=== PATIENT | female | born 1970 | race Caucasian/White ===

== ENCOUNTER → 2016-10-09 | Outpatient (REF) | payer BC ==
[2016-10-09 11:49] LABS: BASO # 0.1 K/mm3 (0.0-0.2); EOS # 0.4 K/mm3 (0.0-0.50); EOS % 4.1 % (0.0-3.0); LARGE UNSTAINED CELL # 0.2 K/mm3 (0.0-0.4); LARGE UNSTAINED CELL % 2.2 % (0.0-4.0); LYMPH # 2.2 K/mm3 (1.5-4.5); LYMPH % 23.3 % (24.0-44.0); MEAN CORPUSCULAR HEMOGLOBIN 30.8 pg (27.0-33.0); MEAN CORPUSCULAR HGB CONC 32.9 g/dl (32.0-36.5); MEAN CORPUSCULAR VOLUME 93.5 fl (80.0-96.0); MONO # 0.4 K/mm3 (0.0-0.8); MONO % 4.4 % (0.0-5.0); NEUTROPHILS # 5.5 K/mm3 (1.8-7.7); NEUTROPHILS % 64.9 % (36.0-66.0); PLATELET COUNT, AUTOMATED 271 k/mm3 (150-450); RED CELL DISTRIBUTION WIDTH 13.1 % (11.5-14.5); WHITE BLOOD COUNT 8.5 K/mm3 (4.0-10.0)
[2016-10-09 12:00] LABS: INR 1.8
[2016-10-09 12:23] LABS: ALBUMIN 3.6 GM/DL (3.2-5.2); ALBUMIN/GLOBULIN RATIO 1.03 (1.00-1.93); ALKALINE PHOSPHATASE 53 U/L (45-117); ALT/SGPT 30 U/L (12-78); ANION GAP 9 MEQ/L (8-16); AST/SGOT 16 U/L (15-37); BILIRUBIN,TOTAL 0.4 MG/DL (0.2-1.0); BLOOD UREA NITROGEN 13 MG/DL (7-18); CALCIUM LEVEL 8.7 MG/DL (8.5-10.1); CARBON DIOXIDE LEVEL 25 MEQ/L (21-32); CHLORIDE LEVEL 104 MEQ/L (98-107); CHOLESTEROL LEVEL 227 MG/DL (<200); CREATININE FOR GFR 0.76 MG/DL (0.55-1.02); FERRITIN 15 NG/ML (8-252); FREE T4 1.07 NG/DL (0.76-1.46); GLOMERULAR FILTRATION RATE > 60.0 (>58); GLUCOSE, FASTING 81 MG/DL (70-105); POTASSIUM SERUM 4.4 MEQ/L (3.5-5.1); SODIUM LEVEL 138 MEQ/L (136-145); TOTAL PROTEIN 7.1 GM/DL (6.4-8.2); TRIGLYCERIDES LEVEL 116 MG/DL (<150)
== END ==
LOC: M SFHCPLAZ 08:07
PROVIDERS: ATTEND Family Medicine
DX: Z86.711 Personal history of pulmonary embolism (principal); E78.5 Hyperlipidemia, unspecified; R73.01 Impaired fasting glucose; E55.9 Vitamin D deficiency, unspecified

== ENCOUNTER → 2016-12-07 | Outpatient (CLI) | payer BC ==
--- NOTE | 2016-12-07 09:37 | REPMRS ---
Patient History The patient states she had a clinical breast exam in 12/2016. Family history of breast cancer in paternal aunt under age 50. Digital Woman Screen Mammo: December 07, 2016 - Exam #: [id number] Bilateral CC and MLO view(s) were taken. Technologist: Marti Perez Technologist Prior study comparison: October 24, 2015, digital woman screen mammo performed at [facility]. May 14, 2014, digital woman screen mammo performed at [facility]. FINDINGS: There are scattered fibroglandular densities. There has been no change in the appearance of the mammogram from the prior studies. There is a mild amount of residual fibroglandular tissue which is fairly symmetric. There is no interval development of dominant mass, architectural distortion, or clustered microcalcification suggestive of malignancy. Scattered lymph nodes are seen in the axillae. No significant changes when compared with prior studies. ASSESSMENT: BI-RADS/ACR category 2 mammogram. Benign finding(s). Recommendation Routine screening mammogram in 1 year (for women over age 40). This mammogram was interpreted with the aid of an FDA-approved computer-aided dectection system. A. Negative x-ray reports should not delay biopsy if a dominant or clinically suspicious mass is present. B. Four to eight percent of cancers are not identified by mammography. C. Adenosis and dense breast may obscure an underlying neoplasm. Electronically Signed By: Patrick Bryan MD 12/07/16 0937
== END ==
LOC: M WHC 07:59
PROVIDERS: ATTEND Family Medicine
DX: Z12.31 Encounter for screening mammogram for malignant neoplasm of breast (principal)

== ENCOUNTER → 2017-07-23 | Outpatient (REF) | payer BC ==
[2017-07-23 12:05] LABS: HEMATOCRIT 46.8 % (36.0-47.0)
[2017-07-23 12:15] LABS: INR 2.69; PROTHROMBIN TIME 29.7 SECONDS (12.4-14.5)
[2017-07-23 12:16] LABS: PARTIAL THROMBOPLASTIN TIME 51.2 SECONDS (26.8-37.9)
[2017-07-23 12:17] LABS: APPEARANCE, URINE CLEAR (CLEAR); BACTERIA, URINE AUTO NEGATIVE (NEGATIVE); BILIRUBIN, URINE AUTO NEGATIVE (NEGATIVE); BLOOD, URINE BLOOD 1+ (NEGATIVE); COLOR, URINE YELLOW (YELLOW); GLUCOSE, URINE (UA) AUTO NEGATIVE (NEGATIVE); KETONE, URINE AUTO NEGATIVE (NEGATIVE); LEUKOCYTE ESTERASE, URINE AUTO NEGATIVE (NEGATIVE); MUCUS, URINE SMALL (NEGATIVE); NITRITE, URINE AUTO NEGATIVE (NEGATIVE); PROTEIN, URINE AUTO NEGATIVE (NEGATIVE); RBC, URINE AUTO 0 /HPF (0-3); SPECIFIC GRAVITY URINE AUTO 1.011 (1.002-1.035); SQUAMOUS EPITHELIAL CELL UR AU 2 /HPF (0-6); UROBILINOGEN, URINE AUTO 0.2 mg/dL (0.0-2.0); WBC, URINE AUTO 0 /HPF (0-3)
[2017-07-23 12:21] LABS: C REACTIVE PROTEIN QUANTITATIV < 0.30 MG/DL (0.00-0.30); CHOLESTEROL LEVEL 219 MG/DL (<200); CHOLESTEROL RISK RATIO 6.441 (<5); HDL CHOLESTEROL 34 MG/DL (>40); LDL CHOLESTEROL 147.8 MG/DL (<100); NON-HDL-C 185 MG/DL; TOTAL PROTEIN 7.4 GM/DL (6.4-8.2); TRIGLYCERIDES LEVEL 186 MG/DL (<150)
[2017-07-23 12:38] LABS: VITAMIN B12 LEVEL 326 PG/ML (247-911)
[2017-07-23 12:49] LABS: CREATININE, URINE 70.1 MG/DL; MALB URINE SIEMENS < 5.0 MG/L; MAU/CREAT RATIO 7.1 MCG/MG (0.0-30.0)
[2017-07-23 13:09] LABS: ESTIMATED AVERAGE GLUCOSE 111 MG/DL (60-110); HEMOGLOBIN A1c 5.5 %
[2017-07-23 14:21] LABS: PRETREATED FOLATE FOR RBCFOL 12.2 NG/ML; RBC FOLATE 547.4 NG/ML (280-791)
[2017-07-25 11:19] LABS: ALBUMIN 4.14 GM/DL (3.29-5.55); ALPHA-1-GLOBULIN % 3.8 % (2.9-4.9); ALPHA-1-GLOBULINS 0.28 GM/DL (0.17-0.41); ALPHA-2-GLOBULINS 0.83 GM/DL (0.42-0.99); ALPHA-2-GLOBULINS % 11.2 % (7.1-11.8); BETA-1-GLOBULINS % 6.8 % (4.7-7.2); BETA-2-GLOBULINS % 6.7 % (3.2-6.5); GAMMA GLOBULIN % 15.5 % (11.1-18.8); GAMMA GLOBULINS 1.15 GM/DL (0.65-1.58)
== END ==
LOC: M SFHCPLAZ 08:07
DX: E78.5 Hyperlipidemia, unspecified (principal); R73.01 Impaired fasting glucose; D68.51 Activated protein C resistance; D75.89 Other specified diseases of blood and blood-forming organs
CPT/HCPCS: 84165

== ENCOUNTER → 2017-11-20 | Outpatient (REF) | payer BC ==
[2017-11-20 11:44] LABS: BASO # 0.1 10^3/uL (0.0-0.2); BASO % 1.2 % (0.0-1.0); EOS # 0.2 10^3/uL (0.0-0.50); EOS % 2.8 % (0.0-3.0); HEMATOCRIT 43.9 % (36.0-47.0); HEMOGLOBIN 14.3 g/dl (12.0-15.5); IMMATURE GRANULOCYTE % 0.5 % (0-3.0); LYMPH # 2.1 10^3/uL (1.5-4.5); LYMPH % 24.9 % (24.0-44.0); MEAN CORPUSCULAR HEMOGLOBIN 30.4 pg (27.0-33.0); MEAN CORPUSCULAR HGB CONC 32.6 g/dl (32.0-36.5); MEAN CORPUSCULAR VOLUME 93.2 fl (80.0-96.0); MONO # 0.6 10^3/uL (0.0-0.8); MONO % 6.8 % (0.0-5.0); NEUTROPHILS # 5.3 10^3/uL (1.8-7.7); NEUTROPHILS % 63.8 % (36.0-66.0); PLATELET COUNT, AUTOMATED 301 10^3/uL (150-450); RED BLOOD COUNT 4.71 10^6/uL (4.00-5.40); RED CELL DISTRIBUTION WIDTH 13.3 % (11.5-14.5); WHITE BLOOD COUNT 8.3 10^3/uL (4.0-10.0)
[2017-11-20 11:55] LABS: INR 2.09; PROTHROMBIN TIME 23.9 SECONDS (12.1-14.4)
[2017-11-20 11:56] LABS: PARTIAL THROMBOPLASTIN TIME 42.3 SECONDS (25.4-37.6)
[2017-11-20 12:00] LABS: ESTIMATED AVERAGE GLUCOSE 114 MG/DL (60-110); HEMOGLOBIN A1c 5.6 %
[2017-11-20 12:07] LABS: VITAMIN B12 LEVEL 449 PG/ML (247-911)
[2017-11-20 12:29] LABS: ALBUMIN 3.5 GM/DL (3.2-5.2); ALKALINE PHOSPHATASE 50 U/L (45-117); ALT/SGPT 32 U/L (12-78); ANION GAP 10 MEQ/L (8-16); AST/SGOT 15 U/L (7-37); BILIRUBIN,TOTAL 0.4 MG/DL (0.2-1.0); BLOOD UREA NITROGEN 17 MG/DL (7-18); CALCIUM LEVEL 8.5 MG/DL (8.5-10.1); CARBON DIOXIDE LEVEL 26 MEQ/L (21-32); CHLORIDE LEVEL 105 MEQ/L (98-107); CREATININE FOR GFR 0.79 MG/DL (0.55-1.30); GLOMERULAR FILTRATION RATE > 60.0 (>58); GLUCOSE, FASTING 91 MG/DL (70-100); POTASSIUM SERUM 4.6 MEQ/L (3.5-5.1); SODIUM LEVEL 141 MEQ/L (136-145)
[2017-11-22 00:37] LABS: INSULIN LEVEL 21.9 uIU/mL (2.6-24.9)
== END ==
LOC: M SFHCPLAZ 08:44
DX: E53.8 Deficiency of other specified B group vitamins (principal); R73.01 Impaired fasting glucose; E78.5 Hyperlipidemia, unspecified; Z79.01 Long term (current) use of anticoagulants
CPT/HCPCS: 83525

== ENCOUNTER → 2017-12-09 | Outpatient (CLI) | payer BC | LOC: M WHC 09:52 | DX: Z12.31 Encounter for screening mammogram for malignant neoplasm of breast (principal); Z80.3 Family history of malignant neoplasm of breast | CPT/HCPCS: 77067 ==

== ENCOUNTER → 2018-02-17 | Outpatient (REF) | payer BC ==
[2018-02-17 13:18] LABS: BASO # 0.1 10^3/uL (0.0-0.2); EOS # 0.2 10^3/uL (0.0-0.50); EOS % 2.6 % (0.0-3.0); HEMOGLOBIN 14.7 g/dl (12.0-15.5); IMMATURE GRANULOCYTE % 0.4 % (0-3.0); LYMPH # 2.2 10^3/uL (1.5-4.5); LYMPH % 26.5 % (24.0-44.0); MEAN CORPUSCULAR HEMOGLOBIN 30.5 pg (27.0-33.0); MEAN CORPUSCULAR VOLUME 95.4 fl (80.0-96.0); MONO # 0.5 10^3/uL (0.0-0.8); MONO % 6.3 % (0.0-5.0); NEUTROPHILS # 5.1 10^3/uL (1.8-7.7); NEUTROPHILS % 63.2 % (36.0-66.0); PLATELET COUNT, AUTOMATED 292 10^3/uL (150-450); RED BLOOD COUNT 4.82 10^6/uL (4.00-5.40); RED CELL DISTRIBUTION WIDTH 13.3 % (11.5-14.5); WHITE BLOOD COUNT 8.1 10^3/uL (4.0-10.0)
[2018-02-17 13:29] LABS: INR 1.94; PROTHROMBIN TIME 22.5 SECONDS (12.1-14.4)
[2018-02-17 13:30] LABS: PARTIAL THROMBOPLASTIN TIME 41.2 SECONDS (25.4-37.6)
[2018-02-17 13:47] LABS: ESTIMATED AVERAGE GLUCOSE 111 MG/DL (60-110); HEMOGLOBIN A1c 5.5 %
[2018-02-17 13:49] LABS: ALBUMIN 3.5 GM/DL (3.2-5.2); ALBUMIN/GLOBULIN RATIO 0.97 (1.00-1.93); ALKALINE PHOSPHATASE 50 U/L (45-117); ALT/SGPT 33 U/L (12-78); ANION GAP 11 MEQ/L (8-16); AST/SGOT 18 U/L (7-37); BILIRUBIN,TOTAL 0.4 MG/DL (0.2-1.0); BLOOD UREA NITROGEN 14 MG/DL (7-18); C REACTIVE PROTEIN QUANTITATIV 0.65 MG/DL (0.00-0.30); CALCIUM LEVEL 8.2 MG/DL (8.5-10.1); CARBON DIOXIDE LEVEL 23 MEQ/L (21-32); CHLORIDE LEVEL 105 MEQ/L (98-107); CHOLESTEROL LEVEL 230 MG/DL (<200); CHOLESTEROL RISK RATIO 6.052 (<5); CREATININE FOR GFR 0.81 MG/DL (0.55-1.30); GLOMERULAR FILTRATION RATE > 60.0 (>58); GLUCOSE, FASTING 84 MG/DL (70-100); HDL CHOLESTEROL 38 MG/DL (>40); LDL CHOLESTEROL 159 MG/DL (<100); NON-HDL-C 192 MG/DL; POTASSIUM SERUM 4.7 MEQ/L (3.5-5.1); PTH INTACT 68.8 PG/ML (18.5-88.0); SODIUM LEVEL 139 MEQ/L (136-145); TOTAL 25(OH) VITAMIN D 62.7 NG/ML (30.0-100.0); TOTAL PROTEIN 7.1 GM/DL (6.4-8.2); TRIGLYCERIDES LEVEL 163 MG/DL (<150)
[2018-02-18 12:47] LABS: ALBUMIN % 55.4 % (55.8-66.1); ALPHA-1-GLOBULIN % 4.2 % (2.9-4.9); ALPHA-2-GLOBULINS % 11.8 % (7.1-11.8)
[2018-02-18 12:48] LABS: ALBUMIN 3.93 GM/DL (3.29-5.55); ALPHA-2-GLOBULINS 0.84 GM/DL (0.42-0.99); BETA-2-GLOBULINS 0.47 GM/DL (0.19-0.55); BETA-2-GLOBULINS % 6.6 % (3.2-6.5); GAMMA GLOBULINS 1.07 GM/DL (0.65-1.58)
[2018-02-19 15:03] LABS: INSULIN LEVEL 28.9 uIU/mL (2.6-24.9)
== END ==
LOC: M SFHCPLAZ 09:24
DX: D75.89 Other specified diseases of blood and blood-forming organs (principal); E55.9 Vitamin D deficiency, unspecified; E78.5 Hyperlipidemia, unspecified; R73.01 Impaired fasting glucose; Z86.718 Personal history of other venous thrombosis and embolism
CPT/HCPCS: 83525

== ENCOUNTER → 2018-06-21 | Outpatient (CLI) | payer BC ==
--- NOTE | 2018-06-22 09:35 | REP ---
MRI LEFT ANKLE WITHOUT CONTRAST: 06/21/2018. COMPARISON: X-ray, 10/21/2017. CLINICAL HISTORY: Sprain anterior talofibular ligament suspected, followup. TECHNIQUE: Axial T1 and T2 fat suppressed, coronal T2 fat suppressed with sagittal T1 and T2 STIR sequences. FINDINGS: Prominent joint effusion anterior to the ankle, smaller amount posterior. There is trace amount on the posterior subtalar joint. The anterior tibiofibular ligament is grossly intact anterior talofibular ligament shows tear. Posterior talofibular ligament is intact. The calcaneofibular ligament shows strain. Deltoid ligament is intact. Subchondral edema, the medial aspect of the posterior subtalar joint. That joint is otherwise unremarkable. Distal tibia and fibula are without discrete bone bruise or fracture. There is no avulsion or abnormality suggested about the medial or lateral malleolus. Some degenerative changes are seen in the subtalar joint. I do not see a talar dome osteochondral defect or disruption of the mortise joint with asymmetry. No Achilles insertional spur, but there is evidence for chronic Achilles tendinopathy with abnormal thickening of the tendon up to almost 9 mm at a point 4.3 cm above its insertion. There is some subcutaneous edema about the ankle laterally. The PT, FDL, and FHL tendons are grossly intact. PD/PL tendons are also intact. AT, EDL, and DHL tendons are also intact. Tarsal bones and their articulations are unremarkable. Talonavicular and calcaneocuboid joints are intact. IMPRESSION: 1. Torn anterior talofibular ligament with strain of the posterior talofibular and calcaneofibular ligaments but no tear. The anterior tibiofibular ligament intact. 2. Deltoid ligament unremarkable, and the tendons about the ankle are unremarkable, except for the Achilles which shows some chronic tendinopathy, tendonitis with abnormal thickening up to 9 mm in its position about 4-5 cm above its insertion. No acute Achilles injury or tear. 3. Subtalar joint degenerative changes with subchondral edema along the medial aspect of the posterior subtalar joint and also the marrow signal throughout the ankle was otherwise intact. Electronically Signed by Patrick Bryan MD 06/22/2018 11:29 A
== END ==
LOC: M RAD 09:11
PROVIDERS: ATTEND Family Medicine
DX: S93.492D Sprain of other ligament of left ankle, subsequent encounter (principal)

== ENCOUNTER → 2018-07-14 | Outpatient (REF) | payer BC ==
[2018-07-14 12:12] LABS: BASO % 0.4 % (0.0-1.0); EOS # 0.2 10^3/uL (0.0-0.50); EOS % 3.3 % (0.0-3.0); HEMATOCRIT 47.5 % (36.0-47.0); HEMOGLOBIN 15.3 g/dl (12.0-15.5); LYMPH # 1.9 10^3/uL (1.5-4.5); MEAN CORPUSCULAR HEMOGLOBIN 29.7 pg (27.0-33.0); MEAN CORPUSCULAR HGB CONC 32.2 g/dl (32.0-36.5); MEAN CORPUSCULAR VOLUME 92.2 fl (80.0-96.0); MONO # 0.4 10^3/uL (0.0-0.8); MONO % 5.8 % (0.0-5.0); NEUTROPHILS # 4.1 10^3/uL (1.8-7.7); NEUTROPHILS % 62.1 % (36.0-66.0); PLATELET COUNT, AUTOMATED 235 10^3/uL (150-450); RED BLOOD COUNT 5.15 10^6/uL (4.00-5.40); WHITE BLOOD COUNT 6.7 10^3/uL (4.0-10.0)
[2018-07-14 12:29] LABS: INR 2.15; PROTHROMBIN TIME 24.4 SECONDS (12.1-14.4)
[2018-07-14 12:30] LABS: PARTIAL THROMBOPLASTIN TIME 43.8 SECONDS (25.4-37.6)
[2018-07-14 12:49] LABS: C REACTIVE PROTEIN QUANTITATIV 0.87 MG/DL (0.00-0.30); CHOLESTEROL LEVEL 165 MG/DL (<200); CPK CREATINE PHOSPHOKINASE 55 U/L (26-192); FREE T4 1.08 NG/DL (0.76-1.46); HDL CHOLESTEROL 33 MG/DL (>40); LDL CHOLESTEROL 105 MG/DL (<100); NON-HDL-C 132 MG/DL; TRIGLYCERIDES LEVEL 134 MG/DL (<150)
[2018-07-14 15:28] LABS: HEMOGLOBIN A1c 5.9 %
[2018-07-16 00:07] LABS: FREE KAPPA LIGHT CHAINS SERUM 26.8 mg/L (3.3-19.4); FREE LAMBDA LIGHT CHAINS SERUM 21.8 mg/L (5.7-26.3); KAPPA/LAMBDA RATIO SERUM 1.23 (0.26-1.65)
== END ==
LOC: M SFHCPLAZ 08:43
PROVIDERS: ATTEND Family Medicine
DX: E53.8 Deficiency of other specified B group vitamins (principal); E78.5 Hyperlipidemia, unspecified; R73.01 Impaired fasting glucose; Z86.718 Personal history of other venous thrombosis and embolism

== ENCOUNTER → 2018-12-15 | Outpatient (REF) | payer BC ==
[2018-12-15 10:00] LABS: BASO # 0.1 10^3/uL (0.0-0.2); BASO % 1.2 % (0.0-1.0); EOS # 0.2 10^3/uL (0.0-0.50); HEMATOCRIT 46.8 % (36.0-47.0); LYMPH # 1.8 10^3/uL (1.5-4.5); LYMPH % 21.8 % (24.0-44.0); MEAN CORPUSCULAR HEMOGLOBIN 30.7 pg (27.0-33.0); MEAN CORPUSCULAR HGB CONC 32.1 g/dl (32.0-36.5); MEAN CORPUSCULAR VOLUME 95.7 fl (80.0-96.0); MONO # 0.6 10^3/uL (0.0-0.8); MONO % 6.5 % (0.0-5.0); NEUTROPHILS # 5.8 10^3/uL (1.8-7.7); NEUTROPHILS % 68.3 % (36.0-66.0); PLATELET COUNT, AUTOMATED 256 10^3/uL (150-450); RED BLOOD COUNT 4.89 10^6/uL (4.00-5.40); WHITE BLOOD COUNT 8.4 10^3/uL (4.0-10.0)
[2018-12-15 10:08] LABS: INR 1.89; PROTHROMBIN TIME 21.5 SECONDS (11.8-14.0)
[2018-12-15 10:09] LABS: PARTIAL THROMBOPLASTIN TIME 38.5 SECONDS (25.0-38.4)
[2018-12-15 10:34] LABS: ALBUMIN 3.7 GM/DL (3.2-5.2); ALT/SGPT 25 U/L (12-78); BILIRUBIN,TOTAL 0.6 MG/DL (0.2-1.0); BLOOD UREA NITROGEN 13 MG/DL (7-18); CALCIUM LEVEL 8.6 MG/DL (8.5-10.1); CARBON DIOXIDE LEVEL 26 MEQ/L (21-32); CHLORIDE LEVEL 108 MEQ/L (98-107); GLOMERULAR FILTRATION RATE > 60.0 (>58); GLUCOSE, FASTING 78 MG/DL (70-100); MAGNESIUM LEVEL 2.5 MG/DL (1.8-2.4); POTASSIUM SERUM 4.5 MEQ/L (3.5-5.1); SODIUM LEVEL 141 MEQ/L (136-145)
[2018-12-15 11:53] LABS: HEMOGLOBIN A1c 5.6 %
== END ==
LOC: M SFHCPLAZ 08:14
PROVIDERS: ATTEND Family Medicine
DX: R73.01 Impaired fasting glucose (principal); Z79.01 Long term (current) use of anticoagulants

== ENCOUNTER → 2019-06-18 | Outpatient (CLI) | payer BC ==
--- NOTE | 2019-06-18 12:20 | REPMRS ---
Patient History The patient states she had a clinical breast exam in 2019. Family history of breast cancer under age 50 in paternal aunt. Digital Woman Screen Mammo: June 18, 2019 - Exam #: [id number] Bilateral CC and MLO view(s) were taken. Technologist: Snehal Quiroz, Technologist Prior study comparison: December 09, 2017, bilateral digital woman screen mammo performed at [facility]. December 07, 2016, digital woman screen mammo performed at [facility]. October 24, 2015, digital woman screen mammo performed at [facility]. FINDINGS: The breast tissue is heterogeneously dense. This may lower the sensitivity of mammography. There is a moderate amount of heterogeneously dense fibroglandular tissue which is fairly symmetric. There is no interval development of dominant mass, architectural distortion, or grouped microcalcification typical of malignancy. There has been no change in the appearance of the mammogram from the prior studies. 3-D tomosynthesis shows no additional findings. Assessment: BI-RADS/ACR category 1 mammogram. Negative Mammogram. Recommendation Routine screening mammogram of both breasts in 1 year (for women over age 40). This patient's Lifetime Breast Cancer RIsk is estimated at 17.2 %. This mammogram was interpreted with the aid of an FDA-approved computer-aided dectection system. Electronically Signed By: Jared Peña MD 06/18/19 2644
== END ==
LOC: M WHC 10:49
PROVIDERS: ATTEND Family Medicine
DX: Z12.31 Encounter for screening mammogram for malignant neoplasm of breast (principal); Z80.3 Family history of malignant neoplasm of breast

== ENCOUNTER → 2019-06-18 | Outpatient (REF) | payer BC | LOC: M SFHCWAGY 12:45 | PROVIDERS: ATTEND Nurse Practitioner Women's Health | DX: Z12.4 Encounter for screening for malignant neoplasm of cervix (principal) | CPT/HCPCS: 87624; G0123 ==

== ENCOUNTER → 2019-07-15 | Outpatient (REF) | payer BC ==
[2019-07-15 18:05] LABS: INR 2.63; PROTHROMBIN TIME 27.9 SECONDS (11.8-14.0)
== END ==
LOC: M SFHCPLAZ 14:08
PROVIDERS: ATTEND Physician Assistant Medical
DX: Z51.81 Encounter for therapeutic drug level monitoring (principal); Z79.899 Other long term (current) drug therapy

== ENCOUNTER → 2019-07-30 | Outpatient (REF) | payer BC ==
[2019-07-30 17:34] LABS: HEMOGLOBIN A1c 5.8 %
[2019-07-30 17:38] LABS: INR 2.65; PARTIAL THROMBOPLASTIN TIME 45.9 SECONDS (25.0-38.4); PROTHROMBIN TIME 28.1 SECONDS (11.8-14.0)
[2019-07-30 17:39] LABS: ALBUMIN 3.8 GM/DL (3.2-5.2); ALT/SGPT 28 U/L (12-78); BILIRUBIN,TOTAL 0.3 MG/DL (0.2-1.0); BLOOD UREA NITROGEN 11 MG/DL (7-18); CARBON DIOXIDE LEVEL 27 MEQ/L (21-32); CHLORIDE LEVEL 105 MEQ/L (98-107); CHOLESTEROL LEVEL 175 MG/DL (<200); CHOLESTEROL RISK RATIO 3.645 (<5); CREATININE FOR GFR 0.98 MG/DL (0.55-1.30); GLOMERULAR FILTRATION RATE > 60.0 (>51); GLUCOSE, FASTING 93 MG/DL (70-100); HDL CHOLESTEROL 48 MG/DL (>40); LDL CHOLESTEROL 95 MG/DL (<100); NON-HDL-C 127 MG/DL; POTASSIUM SERUM 4.6 MEQ/L (3.5-5.1); SODIUM LEVEL 140 MEQ/L (136-145); TOTAL PROTEIN 7.6 GM/DL (6.4-8.2); TRIGLYCERIDES LEVEL 162 MG/DL (<150)
== END ==
LOC: M SFHCPLAZ 15:27
PROVIDERS: ATTEND Family Medicine
DX: E78.5 Hyperlipidemia, unspecified (principal); R73.01 Impaired fasting glucose; E55.9 Vitamin D deficiency, unspecified

== ENCOUNTER → 2020-02-26 | Outpatient (REF) | payer BC ==
[2020-02-26 10:47] LABS: INR 2.11; PROTHROMBIN TIME 24.1 SECONDS (12.5-14.3)
== END ==
LOC: M SFHCPLAZ 08:51
PROVIDERS: ATTEND Family Medicine
DX: Z51.81 Encounter for therapeutic drug level monitoring (principal)

== ENCOUNTER → 2020-04-04 | Outpatient (REF) | payer BC ==
[2020-04-04 18:22] LABS: INR 2.39; PROTHROMBIN TIME 26.6 SECONDS (12.5-14.3)
== END ==
LOC: M PLALAB 15:33
PROVIDERS: ATTEND Family Medicine
DX: Z51.81 Encounter for therapeutic drug level monitoring (principal)

== ENCOUNTER → 2020-05-04 | Outpatient (CLI) | payer BC ==
[2020-05-04 16:31] LABS: INR 2.74; PROTHROMBIN TIME 29.6 SECONDS (12.5-14.3)
== END ==
LOC: M PLALAB 13:30
PROVIDERS: ATTEND Family Medicine
DX: Z51.81 Encounter for therapeutic drug level monitoring (principal); Z79.899 Other long term (current) drug therapy

== ENCOUNTER → 2020-06-06 | Outpatient (REF) | payer BC ==
[2020-06-06 11:12] LABS: BASO # 0.1 10^3/uL (0.0-0.2); BASO % 1.4 % (0.0-1.0); EOS # 0.2 10^3/uL (0.0-0.5); EOS % 2.5 % (0.0-3.0); HEMOGLOBIN 14.8 g/dl (12.0-15.5); LYMPH % 24.5 % (24.0-44.0); MEAN CORPUSCULAR HEMOGLOBIN 29.8 pg (27.0-33.0); MEAN CORPUSCULAR HGB CONC 31.5 g/dl (32.0-36.5); MEAN CORPUSCULAR VOLUME 94.8 fl (80.0-96.0); MONO # 0.6 10^3/uL (0.0-0.8); MONO % 7.2 % (0.0-5.0); NEUTROPHILS # 5.3 10^3/uL (1.5-8.5); NEUTROPHILS % 64.2 % (36.0-66.0); PLATELET COUNT, AUTOMATED 307 10^3/uL (150-450); RED BLOOD COUNT 4.96 10^6/uL (4.00-5.40); WHITE BLOOD COUNT 8.3 10^3/uL (4.0-10.0)
[2020-06-06 11:23] LABS: INR 2.1
[2020-06-06 11:24] LABS: PARTIAL THROMBOPLASTIN TIME 44.1 SECONDS (24.2-38.5)
[2020-06-06 11:47] LABS: ALBUMIN 3.6 GM/DL (3.2-5.2); ALT/SGPT 22 U/L (12-78); BILIRUBIN,TOTAL 0.6 MG/DL (0.2-1.0); BLOOD UREA NITROGEN 13 MG/DL (7-18); CALCIUM LEVEL 8.9 MG/DL (8.5-10.1); CARBON DIOXIDE LEVEL 30 MEQ/L (21-32); CHLORIDE LEVEL 106 MEQ/L (98-107); CREATININE FOR GFR 0.92 MG/DL (0.55-1.30); GLOMERULAR FILTRATION RATE > 60.0 (>51); GLUCOSE, FASTING 90 MG/DL (70-100); POTASSIUM SERUM 4.5 MEQ/L (3.5-5.1); SODIUM LEVEL 139 MEQ/L (136-145); TOTAL PROTEIN 7.2 GM/DL (6.4-8.2)
[2020-06-06 11:52] LABS: MALB URINE SIEMENS 10.7 MG/L; MAU/CREAT RATIO 4.4 MCG/MG (0.0-30.0)
[2020-06-06 12:37] LABS: APPEARANCE, URINE HAZY (CLEAR); BACTERIA, URINE AUTO NEGATIVE (NEGATIVE); BILIRUBIN, URINE AUTO NEGATIVE (NEGATIVE); BLOOD, URINE BLOOD 1+ (NEGATIVE); COLOR, URINE YELLOW (YELLOW); GLUCOSE, URINE (UA) AUTO NEGATIVE (NEGATIVE); KETONE, URINE AUTO NEGATIVE (NEGATIVE); LEUKOCYTE ESTERASE, URINE AUTO NEGATIVE (NEGATIVE); MUCUS, URINE SMALL (NEGATIVE); NITRITE, URINE AUTO NEGATIVE (NEGATIVE); PROTEIN, URINE AUTO NEGATIVE (NEGATIVE); RBC, URINE AUTO 4 /HPF (0-3); SPECIFIC GRAVITY URINE AUTO 1.021 (1.002-1.035); SQUAMOUS EPITHELIAL CELL UR AU 9 /HPF (0-6); UROBILINOGEN, URINE AUTO 0.2 mg/dL (0.0-2.0); WBC, URINE AUTO 1 /HPF (0-3)
[2020-06-06 13:34] LABS: VITAMIN B12 LEVEL 680 PG/ML (247-911)
[2020-06-06 16:28] LABS: HEMOGLOBIN A1c 5.3 %
== END ==
LOC: M PLALAB 08:05
PROVIDERS: ATTEND Family Medicine
DX: E53.8 Deficiency of other specified B group vitamins (principal); R73.01 Impaired fasting glucose; Z86.718 Personal history of other venous thrombosis and embolism

== ENCOUNTER → 2020-08-02 | Outpatient (REF) | payer BC ==
[2020-08-02 17:54] LABS: INR 2.63; PROTHROMBIN TIME 28.7 SECONDS (12.5-14.3)
== END ==
LOC: M SFHCPLAZ 16:48
PROVIDERS: ATTEND Family Medicine
DX: Z86.711 Personal history of pulmonary embolism (principal)

== ENCOUNTER → 2020-09-28 | Outpatient (REF) | payer BC ==
[2020-09-28 15:47] LABS: INR 1.89; PROTHROMBIN TIME 22.1 SECONDS (12.5-14.3)
== END ==
LOC: M PLALAB 14:05
PROVIDERS: ATTEND Family Medicine
DX: Z86.711 Personal history of pulmonary embolism (principal)

== ENCOUNTER → 2020-10-28 | Outpatient (REF) | payer BC ==
[2020-10-28 13:31] LABS: INR 2.26; PROTHROMBIN TIME 25.5 SECONDS (12.5-14.3)
== END ==
LOC: M PLALAB 13:06
PROVIDERS: ATTEND Family Medicine
DX: Z86.711 Personal history of pulmonary embolism (principal)

== ENCOUNTER → 2020-11-25 | Outpatient (CLI) | payer BC ==
[2020-11-25 13:41] LABS: INR 2.11; PROTHROMBIN TIME 24.1 SECONDS (12.5-14.3)
== END ==
LOC: M PLALAB 09:34
PROVIDERS: ATTEND Family Medicine
DX: Z86.711 Personal history of pulmonary embolism (principal)

== ENCOUNTER → 2021-01-02 | Outpatient (CLI) | payer BC ==
[2021-01-02 17:57] LABS: INR 2.22
== END ==
LOC: M PLALAB 15:59
PROVIDERS: ATTEND Family Medicine
DX: Z51.81 Encounter for therapeutic drug level monitoring (principal); Z79.01 Long term (current) use of anticoagulants

== ENCOUNTER → 2021-02-02 | Outpatient (CLI) | payer BC ==
[2021-02-02 14:04] LABS: INR 2.75; PROTHROMBIN TIME 29.4 SECONDS (12.7-14.5)
== END ==
LOC: M PLALAB 09:50
PROVIDERS: ATTEND Family Medicine
DX: Z51.81 Encounter for therapeutic drug level monitoring (principal); Z79.01 Long term (current) use of anticoagulants

== ENCOUNTER → 2021-03-03 | Outpatient (CLI) | payer BC ==
[2021-03-03 10:32] LABS: BASO # 0.1 10^3/uL (0.0-0.2); BASO % 1.6 % (0.0-1.0); EOS # 0.2 10^3/uL (0.0-0.5); HEMATOCRIT 44.6 % (36.0-47.0); HEMOGLOBIN 14.3 g/dl (12.0-15.5); LYMPH # 1.9 10^3/uL (1.5-5.0); LYMPH % 25.6 % (24.0-44.0); MEAN CORPUSCULAR HEMOGLOBIN 29.9 pg (27.0-33.0); MEAN CORPUSCULAR HGB CONC 32.1 g/dl (32.0-36.5); MEAN CORPUSCULAR VOLUME 93.1 fl (80.0-96.0); MONO # 0.4 10^3/uL (0.0-0.8); MONO % 5.7 % (2.0-8.0); NEUTROPHILS # 4.8 10^3/uL (1.5-8.5); NEUTROPHILS % 63.7 % (36.0-66.0); PLATELET COUNT, AUTOMATED 317 10^3/uL (150-450); RED BLOOD COUNT 4.79 10^6/uL (4.00-5.40); WHITE BLOOD COUNT 7.6 10^3/uL (4.0-10.0)
[2021-03-03 10:43] LABS: INR 3.16; PROTHROMBIN TIME 32.7 SECONDS (12.7-14.5)
[2021-03-03 11:13] LABS: ALBUMIN 3.7 GM/DL (3.2-5.2); ALT/SGPT 24 U/L (12-78); BILIRUBIN,TOTAL 0.4 MG/DL (0.2-1.0); BLOOD UREA NITROGEN 11 MG/DL (7-18); CALCIUM LEVEL 8.7 MG/DL (8.5-10.1); CARBON DIOXIDE LEVEL 26 MEQ/L (21-32); CHLORIDE LEVEL 109 MEQ/L (98-107); CHOLESTEROL LEVEL 266 MG/DL (<200); CHOLESTEROL RISK RATIO 6.045 (<5); CREATININE FOR GFR 0.87 MG/DL (0.55-1.30); FREE T4 1.04 NG/DL (0.76-1.46); GLOMERULAR FILTRATION RATE > 60.0 (>51); GLUCOSE, FASTING 97 MG/DL (70-100); HDL CHOLESTEROL 44 MG/DL (>40); LDL CHOLESTEROL 194 MG/DL (<100); NON-HDL-C 222 MG/DL; POTASSIUM SERUM 4.6 MEQ/L (3.5-5.1); SODIUM LEVEL 140 MEQ/L (136-145); TOTAL PROTEIN 7.2 GM/DL (6.4-8.2); TRIGLYCERIDES LEVEL 142 MG/DL (<150)
[2021-03-03 11:17] LABS: HEMOGLOBIN A1c 5.3 %
[2021-03-03 12:40] LABS: PTH INTACT 71.5 PG/ML (18.5-88.0); TOTAL 25(OH) VITAMIN D 58.2 NG/ML (30.0-100.0)
== END ==
LOC: M PLALAB 07:30
PROVIDERS: ATTEND Family Medicine
DX: E78.5 Hyperlipidemia, unspecified (principal); R73.01 Impaired fasting glucose; E55.9 Vitamin D deficiency, unspecified; D75.89 Other specified diseases of blood and blood-forming organs

== ENCOUNTER → 2021-05-08 | Outpatient (CLI) | payer OTHER ==
[2021-05-08 18:29] LABS: INR 2.01; PROTHROMBIN TIME 23.1 SECONDS (12.7-14.5)
== END ==
LOC: M PLALAB 15:48
PROVIDERS: ATTEND Family Medicine
DX: Z51.81 Encounter for therapeutic drug level monitoring (principal); Z79.01 Long term (current) use of anticoagulants

== ENCOUNTER → 2021-06-08 | Outpatient (CLI) | payer OTHER ==
[2021-06-08 17:27] LABS: INR 2.84; PROTHROMBIN TIME 30.2 SECONDS (12.7-14.5)
== END ==
LOC: M PLALAB 15:18
PROVIDERS: ATTEND Family Medicine
DX: Z86.711 Personal history of pulmonary embolism (principal)

== ENCOUNTER → 2021-07-07 | Outpatient (REF) | payer OTHER, BC ==
[2021-07-07 17:32] LABS: INR 2.12; PROTHROMBIN TIME 24.1 SECONDS (12.7-14.5)
== END ==
LOC: M PLALAB 16:40
PROVIDERS: ATTEND Family Medicine
DX: Z86.711 Personal history of pulmonary embolism (principal)

== ENCOUNTER → 2021-08-04 | Outpatient (CLI) | payer OTHER ==
[2021-08-04 15:39] LABS: INR 2.16; PROTHROMBIN TIME 24.5 SECONDS (12.7-14.5)
== END ==
LOC: M PLALAB 13:20
PROVIDERS: ATTEND Family Medicine
DX: Z86.718 Personal history of other venous thrombosis and embolism (principal)

== ENCOUNTER → 2021-09-05 | Outpatient (CLI) | payer OTHER, BC ==
[2021-09-05 17:50] LABS: INR 1.95; PROTHROMBIN TIME 22.6 SECONDS (12.7-14.5)
== END ==
LOC: M PLALAB 15:34
PROVIDERS: ATTEND Family Medicine
DX: Z79.01 Long term (current) use of anticoagulants (principal)

== ENCOUNTER → 2021-10-05 | Outpatient (CLI) | payer OTHER ==
[2021-10-05 17:42] LABS: INR 2.22
== END ==
LOC: M PLALAB 14:45
PROVIDERS: ATTEND Family Medicine
DX: Z51.81 Encounter for therapeutic drug level monitoring (principal); Z79.01 Long term (current) use of anticoagulants

== ENCOUNTER → 2021-10-17 | Outpatient (CLI) | payer OTHER | LOC: M WHC 06:33 | PROVIDERS: ATTEND Family Medicine | DX: Z12.31 Encounter for screening mammogram for malignant neoplasm of breast (principal); Z80.3 Family history of malignant neoplasm of breast ==

== ENCOUNTER → 2021-11-01 | Outpatient (CLI) | payer OTHER ==
[2021-11-01 13:54] LABS: BASO # 0.1 10^3/uL (0.0-0.2); BASO % 1.2 % (0.0-1.0); EOS # 0.2 10^3/uL (0.0-0.5); EOS % 2.4 % (0.0-3.0); HEMATOCRIT 47.5 % (36.0-47.0); HEMOGLOBIN 14.9 g/dl (12.0-15.5); LYMPH # 1.6 10^3/uL (1.5-5.0); LYMPH % 20.6 % (24.0-44.0); MEAN CORPUSCULAR HGB CONC 31.4 g/dl (32.0-36.5); MEAN CORPUSCULAR VOLUME 92.6 fl (80.0-96.0); MONO # 0.6 10^3/uL (0.0-0.8); MONO % 7.1 % (2.0-8.0); NEUTROPHILS # 5.3 10^3/uL (1.5-8.5); NEUTROPHILS % 68.3 % (36.0-66.0); PLATELET COUNT, AUTOMATED 303 10^3/uL (150-450); RED BLOOD COUNT 5.13 10^6/uL (4.00-5.40); WHITE BLOOD COUNT 7.8 10^3/uL (4.0-10.0)
[2021-11-01 13:58] LABS: ALBUMIN 3.8 GM/DL (3.2-5.2); ALT/SGPT 20 U/L (12-78); BILIRUBIN,TOTAL 0.5 MG/DL (0.2-1.0); BLOOD UREA NITROGEN 13 MG/DL (7-18); C REACTIVE PROTEIN QUANTITATIV 1.05 MG/DL (0.00-0.30); CALCIUM LEVEL 8.7 MG/DL (8.5-10.1); CARBON DIOXIDE LEVEL 26 MEQ/L (21-32); CHLORIDE LEVEL 109 MEQ/L (98-107); CHOLESTEROL LEVEL 230 MG/DL (<200); CHOLESTEROL RISK RATIO 5.609 (<5); CREATININE FOR GFR 0.82 MG/DL (0.55-1.30); FERRITIN 12 NG/ML (8-252); GLOMERULAR FILTRATION RATE > 60.0 (>51); GLUCOSE, FASTING 105 MG/DL (70-100); HDL CHOLESTEROL 41 MG/DL (>40); LDL CHOLESTEROL 167 MG/DL (<100); NON-HDL-C 189 MG/DL; NT-PRO BNP 23 PG/ML (<125); POTASSIUM SERUM 4.5 MEQ/L (3.5-5.1); SODIUM LEVEL 139 MEQ/L (136-145); TOTAL PROTEIN 7.5 GM/DL (6.4-8.2); TRIGLYCERIDES LEVEL 110 MG/DL (<150)
[2021-11-01 14:01] LABS: INR 2.01; PROTHROMBIN TIME 23.2 SECONDS (12.7-14.5)
[2021-11-01 14:18] LABS: VITAMIN B12 LEVEL 738 PG/ML (247-911)
== END ==
LOC: M PLALAB 09:56
PROVIDERS: ATTEND Family Medicine
DX: D75.89 Other specified diseases of blood and blood-forming organs (principal); E53.8 Deficiency of other specified B group vitamins; E78.5 Hyperlipidemia, unspecified; I10 Essential (primary) hypertension; Z86.718 Personal history of other venous thrombosis and embolism

== ENCOUNTER → 2021-11-16 | Outpatient (CLI) | payer OTHER | LOC: M PLAIMG 12:51 | PROVIDERS: ATTEND Physician Assistant Medical | DX: K42.9 Umbilical hernia without obstruction or gangrene (principal) ==

== ENCOUNTER → 2021-12-04 | Outpatient (CLI) | payer OTHER ==
[2021-12-04 18:18] LABS: INR 1.77; PROTHROMBIN TIME 21.1 SECONDS (12.7-14.5)
== END ==
LOC: M PLALAB 15:53
PROVIDERS: ATTEND Family Medicine
DX: Z51.81 Encounter for therapeutic drug level monitoring (principal); Z79.01 Long term (current) use of anticoagulants; D68.51 Activated protein C resistance; Z86.711 Personal history of pulmonary embolism

== ENCOUNTER → 2022-01-05 | Outpatient (CLI) | payer OTHER ==
[2022-01-05 17:01] LABS: INR 1.94; PROTHROMBIN TIME 22.6 SECONDS (12.7-14.5)
== END ==
LOC: M PLALAB 13:29
PROVIDERS: ATTEND Family Medicine
DX: Z79.01 Long term (current) use of anticoagulants (principal); D68.51 Activated protein C resistance; Z86.711 Personal history of pulmonary embolism

== ENCOUNTER → 2022-02-05 | Outpatient (CLI) | payer OTHER ==
[2022-02-05 18:26] LABS: INR 2.14; PROTHROMBIN TIME 24.3 SECONDS (12.7-14.5)
== END ==
LOC: M PLALAB 15:25
PROVIDERS: ATTEND Family Medicine
DX: Z79.01 Long term (current) use of anticoagulants (principal); D68.51 Activated protein C resistance; Z86.711 Personal history of pulmonary embolism

== ENCOUNTER → 2022-03-07 | Outpatient (CLI) | payer OTHER ==
[~2022-03-07] MED LIST: ERGO500029 PO; ROSU5TAB5 PO; WARF-23 PO
== END ==
LOC: M LABSMTC 10:18
PROVIDERS: ATTEND Anesthesiology
DX: Z01.812 Encounter for preprocedural laboratory examination (principal); Z11.52 Encounter for screening for COVID-19

== ENCOUNTER → 2022-03-09 | Outpatient (CLI) | payer OTHER ==
[~2022-03-09] MED LIST changes: +ENOX80IN3; +OXYC1TAB23 PO
[2022-03-09 10:22] LABS: BASO # 0.1 10^3/uL (0.0-0.2); BASO % 0.9 % (0.0-1.0); EOS # 0.2 10^3/uL (0.0-0.5); EOS % 2.5 % (0.0-3.0); HEMATOCRIT 46.3 % (36.0-47.0); HEMOGLOBIN 14.3 g/dl (12.0-15.5); LYMPH # 1.6 10^3/uL (1.5-5.0); LYMPH % 17.9 % (24.0-44.0); MEAN CORPUSCULAR HEMOGLOBIN 29.1 pg (27.0-33.0); MEAN CORPUSCULAR HGB CONC 30.9 g/dl (32.0-36.5); MEAN CORPUSCULAR VOLUME 94.1 fl (80.0-96.0); MONO # 0.5 10^3/uL (0.0-0.8); NEUTROPHILS # 6.4 10^3/uL (1.5-8.5); NEUTROPHILS % 72.2 % (36.0-66.0); PLATELET COUNT, AUTOMATED 293 10^3/uL (150-450); RED BLOOD COUNT 4.92 10^6/uL (4.00-5.40); WHITE BLOOD COUNT 8.8 10^3/uL (4.0-10.0)
[2022-03-09 10:37] LABS: INR 1.43; PARTIAL THROMBOPLASTIN TIME 32.9 SECONDS (24.8-34.2); PROTHROMBIN TIME 17.7 SECONDS (12.5-14.5)
[2022-03-09 10:55] LABS: ALBUMIN 3.4 GM/DL (3.2-5.2); ALT/SGPT 20 U/L (12-78); BILIRUBIN,TOTAL 0.7 MG/DL (0.2-1.0); BLOOD UREA NITROGEN 11 MG/DL (7-18); CALCIUM LEVEL 8.7 MG/DL (8.5-10.1); CARBON DIOXIDE LEVEL 25 MEQ/L (21-32); CHLORIDE LEVEL 108 MEQ/L (98-107); CREATININE FOR GFR 0.73 MG/DL (0.55-1.30); FERRITIN 10 NG/ML (8-252); GLOMERULAR FILTRATION RATE > 60.0 (>51); GLUCOSE, FASTING 94 MG/DL (70-100); NT-PRO BNP 26 PG/ML (<125); POTASSIUM SERUM 4.6 MEQ/L (3.5-5.1); SODIUM LEVEL 138 MEQ/L (136-145); TOTAL PROTEIN 7.1 GM/DL (6.4-8.2)
== END ==
LOC: M PLALAB 07:41
PROVIDERS: ATTEND Family Medicine
DX: Z01.818 Encounter for other preprocedural examination (principal); D69.51 Posttransfusion purpura; D50.9 Iron deficiency anemia, unspecified

== ENCOUNTER 2022-03-12 06:56 | Day surgery (SDC) | payer OTHER ==
[~2022-03-12] VITALS: Ht 152.4 cm; Wt 84.1 kg
[~2022-03-12 06:56] MED LIST changes: -ENOX80IN3; -OXYC1TAB23 PO; +ceFAZolin SOD 2 GM in IV 1 EA IV ONE
[2022-03-12] MEDS ORDERED: BUPIVACAINE HCL 0.25% 10ML VIAL As Ordered ONE (07:13)
[2022-03-12] MEDS ORDERED: ROCURONIUM BROMIDE 50 MG/5 ML VIAL As Ordered ONE ×2 (07:14→09:09)
[2022-03-12] MEDS ORDERED: MIDAZOLAM INJ 2MG/2ML VIAL (J2250 PER 1MG) As Ordered ONE (07:14)
[2022-03-12] MEDS ORDERED: LIDOCAINE 2% 100MG/5ML SDV (FOR ANES.) As Ordered ONE (07:14)
[2022-03-12] MEDS ORDERED: fentaNYL 100 MCG/2 ML INJECTION As Ordered ONE (07:14)
[2022-03-12] MEDS ORDERED: propofoL 200 MG/20 ML VIAL As Ordered ONE (07:14)
[2022-03-12 07:39] LABS: HEMATOCRIT 45.9 % (36.0-47.0); HEMOGLOBIN 14.7 g/dl (12.0-15.5); MEAN CORPUSCULAR HEMOGLOBIN 29.7 pg (27.0-33.0); MEAN CORPUSCULAR VOLUME 92.7 fl (80.0-96.0); PLATELET COUNT, AUTOMATED 302 10^3/uL (150-450); RED BLOOD COUNT 4.95 10^6/uL (4.00-5.40); WHITE BLOOD COUNT 9.2 10^3/uL (4.0-10.0)
[2022-03-12] MEDS ORDERED: LR 1,000 ML IV SCH ×2 (07:45→12:50)
[2022-03-12] MEDS ORDERED: ENOX80IN3 (07:56)
[2022-03-12 08:06] LABS: INR 0.96
[2022-03-12 08:07] LABS: PARTIAL THROMBOPLASTIN TIME 32.9 SECONDS (24.8-34.2)
[2022-03-12] MEDS ORDERED: ONDANSETRON 4MG 2ML VIAL As Ordered ONE (08:48)
[2022-03-12] MEDS ORDERED: dexameTHASONE 4 MG/ML 1ML VIAL (J1100 PER 1MG) As Ordered ONE (08:48)
[2022-03-12] MEDS ORDERED: KETOROLAC 60MG 2ML VIAL As Ordered ONE (09:03)
[2022-03-12] MEDS ORDERED: SUGAMMADEX SODIUM 500 MG/5 ML VIAL (BRIDION) As Ordered ONE (09:03)
[2022-03-12] MEDS ORDERED: METOCLOPRAMIDE INJ 10MG/2ML VIAL (J2765 PER 1) As Ordered ONE (09:03)
[2022-03-12] MEDS ORDERED: HYDROmorphone HCL 2MG/ML 1ML VIAL As Ordered ONE (09:04)
[2022-03-12] MEDS ORDERED: ACETAMINOPHEN 1000MG 100ML IV BTL (OFIRMEV) (J0131 PER 10MG) As Ordered ONE (09:04)
[2022-03-12] MEDS ORDERED: GLYCOPYRROLATE INJ 0.2 MG/ML 2 ML VIAL As Ordered ONE (09:32)
[2022-03-12] MEDS ORDERED: oxyCODONE 5MG TAB PO PRN (10:20)
[2022-03-12] MEDS ORDERED: HYDROMORPHONE HCL 0.5 MG/ 0.5 ML SYRINGE (J1170 PER 1) IV PRN (10:20)
[2022-03-12] MEDS ORDERED: fentaNYL 100 MCG/2 ML INJECTION IV PRN (10:20)
[2022-03-12] MEDS ORDERED: ONDANSETRON 4MG 2ML VIAL IV PRN (10:20)
[2022-03-12] MEDS ORDERED: OXYC1TAB23 PO (10:46)
[2022-03-12] MEDS ORDERED: PERCOCET 5MG/325MG TAB PO PRN (12:50)
[2022-03-12 15:00] VITALS: BP 144/77
== END 2022-03-12 16:20 | disposition home or self-care (01) ==
LOC: M SDC 06:56
PROVIDERS: ATTEND Specialist
DX: N83.202 Unspecified ovarian cyst, left side (principal); N81.4 Uterovaginal prolapse, unspecified; D25.9 Leiomyoma of uterus, unspecified
CPT/HCPCS: 36415; 57283; 58571; 85027; 85610; 85730; 86850; 86900; 86901; 88307; J0131; J0690; J1100; J1170; J1885; J2250; J2405; J2765; J3010; S2900

== ENCOUNTER → 2022-03-16 | Outpatient (CLI) | payer OTHER ==
[~2022-03-16] MED LIST changes: +ENOX80IN3; +OXYC1TAB23 PO; -ceFAZolin SOD 2 GM in IV 1 EA IV ONE
[2022-03-16 14:10] LABS: INR 1.26
[2022-03-16 14:11] LABS: PARTIAL THROMBOPLASTIN TIME 32.7 SECONDS (24.8-34.2)
== END ==
LOC: M PLALAB 10:03
PROVIDERS: ATTEND Specialist
DX: Z86.711 Personal history of pulmonary embolism (principal)

== ENCOUNTER → 2022-03-20 | Outpatient (CLI) | payer OTHER ==
[2022-03-20 19:06] LABS: INR 1.79; PROTHROMBIN TIME 21.1 SECONDS (12.5-14.5)
== END ==
LOC: M PLALAB 14:54
PROVIDERS: ATTEND Family Medicine
DX: Z51.81 Encounter for therapeutic drug level monitoring (principal); Z79.01 Long term (current) use of anticoagulants

== ENCOUNTER → 2022-03-28 | Outpatient (CLI) | payer OTHER ==
[2022-03-28 11:32] LABS: INR 2.46; PROTHROMBIN TIME 27.1 SECONDS (12.5-14.5)
== END ==
LOC: M PLALAB 07:30
PROVIDERS: ATTEND Family Medicine
DX: D68.51 Activated protein C resistance (principal); Z79.01 Long term (current) use of anticoagulants; Z86.711 Personal history of pulmonary embolism

== ENCOUNTER → 2022-04-11 | Outpatient (CLI) | payer OTHER ==
[2022-04-11 15:18] LABS: INR 3.06; PROTHROMBIN TIME 32.1 SECONDS (12.5-14.5)
== END ==
LOC: M PLALAB 11:45
PROVIDERS: ATTEND Family Medicine
DX: D68.51 Activated protein C resistance (principal); Z79.01 Long term (current) use of anticoagulants

== ENCOUNTER → 2022-04-25 | Outpatient (CLI) | payer OTHER ==
[2022-04-25 11:28] LABS: BASO # 0.1 10^3/uL (0.0-0.2); BASO % 1.4 % (0.0-1.0); EOS # 0.2 10^3/uL (0.0-0.5); HEMATOCRIT 47.8 % (36.0-47.0); LYMPH # 1.7 10^3/uL (1.5-5.0); LYMPH % 22.9 % (24.0-44.0); MEAN CORPUSCULAR HEMOGLOBIN 29.6 pg (27.0-33.0); MEAN CORPUSCULAR HGB CONC 31.4 g/dl (32.0-36.5); MEAN CORPUSCULAR VOLUME 94.3 fl (80.0-96.0); MONO # 0.4 10^3/uL (0.0-0.8); MONO % 5.7 % (2.0-8.0); NEUTROPHILS # 5.1 10^3/uL (1.5-8.5); NEUTROPHILS % 66.6 % (36.0-66.0); PLATELET COUNT, AUTOMATED 273 10^3/uL (150-450); RED BLOOD COUNT 5.07 10^6/uL (4.00-5.40); WHITE BLOOD COUNT 7.6 10^3/uL (4.0-10.0)
[2022-04-25 11:46] LABS: C REACTIVE PROTEIN QUANTITATIV < 0.40 MG/DL (<1.0)
[2022-04-25 11:49] LABS: CPK CREATINE PHOSPHOKINASE 70 U/L (34-145)
[2022-04-25 11:50] LABS: INR 3.68; PROTHROMBIN TIME 37.1 SECONDS (12.5-14.5)
[2022-04-25 11:54] LABS: ALBUMIN 3.9 G/DL (3.2-5.2); ALKALINE PHOSPHATASE 53 U/L (46-116); ALT/SGPT 18 U/L (7.0-40); AST/SGOT 17 U/L (<34); BILIRUBIN,TOTAL 0.6 MG/DL (0.3-1.2); BLOOD UREA NITROGEN 13 MG/DL (9-23); CALCIUM LEVEL 8.9 MG/DL (8.5-10.1); CARBON DIOXIDE LEVEL 27 MMOL/L (20-31); CHLORIDE LEVEL 105 MMOL/L (98-107); CHOLESTEROL LEVEL 140 MG/DL (<200); CREATININE FOR GFR 0.82 MG/DL (0.55-1.30); FERRITIN 11.1 NG/ML (7.3-270.7); GLOMERULAR FILTRATION RATE > 60.0 (>51); GLUCOSE, FASTING 91 MG/DL (60-100); HDL CHOLESTEROL 41.1 MG/DL (>40); LDL CHOLESTEROL 74.5 MG/DL (<100); NON-HDL-C 99 MG/DL; POTASSIUM SERUM 4.3 MMOL/L (3.5-5.1); PTH INTACT 72.9 PG/ML (18.5-88.0); SODIUM LEVEL 140 MMOL/L (136-145); TOTAL 25(OH) VITAMIN D 70.8 NG/ML (20.0-100.0); TOTAL PROTEIN 7.2 G/DL (5.7-8.2); TRIGLYCERIDES LEVEL 122 MG/DL (<150); VITAMIN B12 LEVEL 946 PG/ML (211-911)
[2022-04-25 12:02] LABS: HEMOGLOBIN A1c 5.2 % (4.0-6.0)
[2022-04-26 11:08] LABS: APOLIPOPROTEIN B/A-1 RATIO 0.7 ratio (0.0-0.6); H PYLORI SERUM QUANT IgG ABY 0.12 (0.00-0.79); INSULIN LEVEL 18.7 uIU/mL (2.6-24.9)
== END ==
LOC: M PLALAB 08:38
PROVIDERS: ATTEND Family Medicine
DX: E78.5 Hyperlipidemia, unspecified (principal); I10 Essential (primary) hypertension; R73.01 Impaired fasting glucose; E53.8 Deficiency of other specified B group vitamins; E55.9 Vitamin D deficiency, unspecified; D50.9 Iron deficiency anemia, unspecified

== ENCOUNTER → 2022-05-15 | Outpatient (CLI) | payer OTHER ==
[2022-05-15 14:32] LABS: INR 2.97; PROTHROMBIN TIME 31.4 SECONDS (12.5-14.5)
== END ==
LOC: M PLALAB 11:23
PROVIDERS: ATTEND Family Medicine
DX: Z86.711 Personal history of pulmonary embolism (principal); Z79.01 Long term (current) use of anticoagulants

== ENCOUNTER → 2022-05-26 | Outpatient (CLI) | payer OTHER | LOC: M RAD 10:12 | PROVIDERS: ATTEND Physician Assistant | DX: R13.14 Dysphagia, pharyngoesophageal phase (principal) ==

== ENCOUNTER → 2022-06-08 | Outpatient (CLI) | payer OTHER ==
[~2022-06-08] MED LIST changes: +PROHANCE 279.3MG/ML 15ML VIAL ONE; +PROHANCE 279.3MG/ML 5ML VIAL ONE
== END ==
LOC: M PLAIMG 07:53
PROVIDERS: ATTEND Specialist
DX: M51.26 Other intervertebral disc displacement, lumbar region (principal); M51.36 Other intervertebral disc degeneration, lumbar region
CPT/HCPCS: 72148; 72157; A9576

== ENCOUNTER → 2022-06-12 | Outpatient (CLI) | payer OTHER ==
[~2022-06-12] MED LIST changes: -PROHANCE 279.3MG/ML 15ML VIAL ONE; -PROHANCE 279.3MG/ML 5ML VIAL ONE
[2022-06-12 16:14] LABS: INR 2.73; PROTHROMBIN TIME 29.4 SECONDS (12.5-14.5)
== END ==
LOC: M PLALAB 12:37
PROVIDERS: ATTEND Family Medicine
DX: Z79.01 Long term (current) use of anticoagulants (principal)

== ENCOUNTER → 2022-07-10 | Outpatient (CLI) | payer OTHER ==
[2022-07-10 18:31] LABS: INR 2.29; PROTHROMBIN TIME 25.6 SECONDS (12.5-14.5)
== END ==
LOC: M PLALAB 15:21
PROVIDERS: ATTEND Family Medicine
DX: Z79.01 Long term (current) use of anticoagulants (principal)

== ENCOUNTER → 2022-08-07 | Outpatient (CLI) | payer OTHER ==
[2022-08-07 14:12] LABS: INR 3.13; PROTHROMBIN TIME 32.7 SECONDS (12.5-14.5)
== END ==
LOC: M PLALAB 09:24
PROVIDERS: ATTEND Family Medicine
DX: Z79.01 Long term (current) use of anticoagulants (principal)

== ENCOUNTER → 2022-09-04 | Outpatient (CLI) | payer OTHER ==
[2022-09-04 16:20] LABS: INR 2.16; PROTHROMBIN TIME 24.5 SECONDS (12.5-14.5)
== END ==
LOC: M PLALAB 13:38
PROVIDERS: ATTEND Family Medicine
DX: Z79.01 Long term (current) use of anticoagulants (principal)

== ENCOUNTER → 2022-10-03 | Outpatient (CLI) | payer OTHER ==
[2022-10-03 16:03] LABS: INR 1.82; PROTHROMBIN TIME 21.4 SECONDS (12.5-14.5)
== END ==
LOC: M PLALAB 12:41
PROVIDERS: ATTEND Family Medicine
DX: Z79.01 Long term (current) use of anticoagulants (principal)

== ENCOUNTER → 2022-10-17 | Outpatient (CLI) | payer OTHER | LOC: M RAD 14:29 | PROVIDERS: ATTEND Surgery | DX: R22.9 Localized swelling, mass and lump, unspecified (principal) ==

== ENCOUNTER → 2022-11-07 | Outpatient (CLI) | payer OTHER ==
[2022-11-07 15:47] LABS: INR 2.02; PROTHROMBIN TIME 23.2 SECONDS (12.5-14.5)
== END ==
LOC: M PLALAB 12:20
PROVIDERS: ATTEND Family Medicine
DX: Z51.81 Encounter for therapeutic drug level monitoring (principal)

== ENCOUNTER → 2022-12-06 | Outpatient (CLI) | payer OTHER ==
[2022-12-06 17:31] LABS: INR 2.06; PROTHROMBIN TIME 23.6 SECONDS (12.5-14.5)
== END ==
LOC: M PLALAB 15:28
PROVIDERS: ATTEND Family Medicine
DX: Z51.81 Encounter for therapeutic drug level monitoring (principal); Z79.01 Long term (current) use of anticoagulants

== ENCOUNTER → 2023-01-04 | Outpatient (CLI) | payer OTHER ==
[2023-01-04 15:13] LABS: INR 2.3; PROTHROMBIN TIME 24.7 SECONDS (12.5-14.5)
== END ==
LOC: M PLALAB 11:53
PROVIDERS: ATTEND Family Medicine
DX: Z51.81 Encounter for therapeutic drug level monitoring (principal); Z79.01 Long term (current) use of anticoagulants

== ENCOUNTER → 2023-03-01 | Outpatient (CLI) | payer OTHER ==
[2023-03-01 16:17] LABS: INR 2.29; PROTHROMBIN TIME 24.6 SECONDS (12.5-14.5)
== END ==
LOC: M PLALAB 13:33
PROVIDERS: ATTEND Family Medicine
DX: Z51.81 Encounter for therapeutic drug level monitoring (principal); Z79.01 Long term (current) use of anticoagulants

== ENCOUNTER → 2023-03-05 | Outpatient (CLI) | payer OTHER | LOC: M WHC 13:50 | PROVIDERS: ATTEND Family Medicine | DX: Z12.31 Encounter for screening mammogram for malignant neoplasm of breast (principal); M85.89 Other specified disorders of bone density and structure, multiple sites ==

== ENCOUNTER → 2023-04-01 | Outpatient (CLI) | payer OTHER ==
[2023-04-01 17:13] LABS: INR 2.55; PROTHROMBIN TIME 26.5 SECONDS (12.5-14.5)
== END ==
LOC: M PLALAB 16:11
PROVIDERS: ATTEND Family Medicine
DX: Z51.81 Encounter for therapeutic drug level monitoring (principal); Z79.01 Long term (current) use of anticoagulants

== ENCOUNTER → 2023-05-01 | Outpatient (CLI) | payer OTHER ==
[2023-05-01 10:23] LABS: BASO # 0.1 10^3/uL (0.0-0.2); BASO % 1.4 % (0.0-1.0); EOS # 0.2 10^3/uL (0.0-0.5); EOS % 2.3 % (0.0-3.0); HEMATOCRIT 48.9 % (36.0-47.0); HEMOGLOBIN 15.9 g/dl (12.0-15.5); LYMPH # 2.2 10^3/uL (1.5-5.0); LYMPH % 27.4 % (24.0-44.0); MEAN CORPUSCULAR HEMOGLOBIN 31.1 pg (27.0-33.0); MEAN CORPUSCULAR HGB CONC 32.5 g/dl (32.0-36.5); MEAN CORPUSCULAR VOLUME 95.7 fl (80.0-96.0); MONO # 0.4 10^3/uL (0.0-0.8); MONO % 5.6 % (2.0-8.0); NEUTROPHILS % 62.9 % (36.0-66.0); PLATELET COUNT, AUTOMATED 287 10^3/uL (150-450); RED BLOOD COUNT 5.11 10^6/uL (4.00-5.40); WHITE BLOOD COUNT 7.9 10^3/uL (4.0-10.0)
[2023-05-01 10:38] LABS: INR 3.36; PROTHROMBIN TIME 32.8 SECONDS (12.5-14.5)
[2023-05-01 10:40] LABS: PARTIAL THROMBOPLASTIN TIME 46.7 SECONDS (24.8-34.2)
[2023-05-01 10:47] LABS: HEMOGLOBIN A1c 5.4 % (4.0-6.0)
[2023-05-01 10:52] LABS: ALBUMIN 3.7 G/DL (3.2-5.2); ALKALINE PHOSPHATASE 48 U/L (46-116); ALT/SGPT 22 U/L (7.0-40); AST/SGOT 13 U/L (<34); BILIRUBIN,TOTAL 0.5 MG/DL (0.3-1.2); BLOOD UREA NITROGEN 15 MG/DL (9-23); CALCIUM LEVEL 8.6 MG/DL (8.5-10.1); CARBON DIOXIDE LEVEL 25 MMOL/L (20-31); CHLORIDE LEVEL 106 MMOL/L (98-107); CHOLESTEROL LEVEL 179 MG/DL (<200); CHOLESTEROL RISK RATIO 3.96 (<5); CREATININE FOR GFR 0.77 MG/DL (0.55-1.30); GLOMERULAR FILTRATION RATE > 60.0 (>51); GLUCOSE, FASTING 101 MG/DL (60-100); HDL CHOLESTEROL 45.1 MG/DL (>40); LDL CHOLESTEROL 108.5 MG/DL (<100); NON-HDL-C 133.9 MG/DL; POTASSIUM SERUM 4.3 MMOL/L (3.5-5.1); SODIUM LEVEL 138 MMOL/L (136-145); TRIGLYCERIDES LEVEL 127 MG/DL (<150); VITAMIN B12 LEVEL 701 PG/ML (211-911)
== END ==
LOC: M PLALAB 07:39
PROVIDERS: ATTEND Family Medicine
DX: R73.01 Impaired fasting glucose (principal); E53.8 Deficiency of other specified B group vitamins

== ENCOUNTER → 2023-05-30 | Outpatient (CLI) | payer OTHER ==
[2023-05-30 17:19] LABS: INR 2.46; PROTHROMBIN TIME 25.8 SECONDS (12.5-14.5)
== END ==
LOC: M PLALAB 15:21
PROVIDERS: ATTEND Family Medicine
DX: Z51.81 Encounter for therapeutic drug level monitoring (principal); Z79.01 Long term (current) use of anticoagulants

== ENCOUNTER → 2023-06-14 | Outpatient (CLI) | payer OTHER | LOC: M RAD 09:26 | PROVIDERS: ATTEND Physician Assistant | DX: M79.604 Pain in right leg (principal); S89.91XA Unspecified injury of right lower leg, initial encounter; S76.311A Strain of muscle, fascia and tendon of the posterior muscle group at thigh level, right thigh, initial encounter; X58.XXXA Exposure to other specified factors, initial encounter; Y92.9 Unspecified place or not applicable; Y93.9 Activity, unspecified; Y99.9 Unspecified external cause status ==

== ENCOUNTER → 2023-06-27 | Outpatient (CLI) | payer OTHER ==
[2023-06-27 17:59] LABS: INR 2.19; PROTHROMBIN TIME 23.6 SECONDS (12.5-14.5)
== END ==
LOC: M PLALAB 16:23
PROVIDERS: ATTEND Family Medicine
DX: Z51.81 Encounter for therapeutic drug level monitoring (principal); Z79.01 Long term (current) use of anticoagulants

== ENCOUNTER → 2023-07-26 | Outpatient (CLI) | payer OTHER ==
[2023-07-26 17:32] LABS: INR 2.05; PROTHROMBIN TIME 22.4 SECONDS (12.5-14.5)
== END ==
LOC: M PLALAB 15:17
PROVIDERS: ATTEND Family Medicine
DX: Z51.81 Encounter for therapeutic drug level monitoring (principal); Z79.01 Long term (current) use of anticoagulants

== ENCOUNTER → 2023-08-23 | Outpatient (CLI) | payer OTHER ==
[2023-08-23 15:22] LABS: INR 2.03; PROTHROMBIN TIME 22.2 SECONDS (12.5-14.5)
== END ==
LOC: M PLALAB 12:58
PROVIDERS: ATTEND Family Medicine
DX: Z51.81 Encounter for therapeutic drug level monitoring (principal); Z79.01 Long term (current) use of anticoagulants

== ENCOUNTER → 2023-09-20 | Outpatient (CLI) | payer OTHER ==
[~2023-09-20] MED LIST changes: +ROSU5TAB40 PO; -ROSU5TAB5 PO
[2023-09-20 15:33] LABS: INR 2.07; PROTHROMBIN TIME 22.6 SECONDS (12.5-14.5)
== END ==
LOC: M PLALAB 12:41
PROVIDERS: ATTEND Family Medicine
DX: Z51.81 Encounter for therapeutic drug level monitoring (principal)

== ENCOUNTER → 2023-10-22 | Outpatient (CLI) | payer OTHER ==
[~2023-10-22] MED LIST changes: +B-12100010 PO; +TELM1TAB35 PO; +WARF-18 PO; +WARF4TAB51 PO
[2023-10-22 15:25] LABS: BASO # 0.1 10^3/uL (0.0-0.2); BASO % 1.2 % (0.0-1.0); EOS # 0.3 10^3/uL (0.0-0.5); EOS % 3.1 % (0.0-3.0); HEMATOCRIT 45.3 % (36.0-47.0); HEMOGLOBIN 14.9 g/dl (12.0-15.5); LYMPH # 2.5 10^3/uL (1.5-5.0); LYMPH % 28.5 % (24.0-44.0); MEAN CORPUSCULAR HEMOGLOBIN 31.4 pg (27.0-33.0); MEAN CORPUSCULAR HGB CONC 32.9 g/dl (32.0-36.5); MEAN CORPUSCULAR VOLUME 95.4 fl (80.0-96.0); MONO # 0.6 10^3/uL (0.0-0.8); MONO % 6.6 % (2.0-8.0); NEUTROPHILS # 5.4 10^3/uL (1.5-8.5); NEUTROPHILS % 60.4 % (36.0-66.0); PLATELET COUNT, AUTOMATED 254 10^3/uL (150-450); RED BLOOD COUNT 4.75 10^6/uL (4.00-5.40); WHITE BLOOD COUNT 8.9 10^3/uL (4.0-10.0)
[2023-10-22 15:31] LABS: HEMOGLOBIN A1c 5.5 % (4.0-6.0)
[2023-10-22 15:50] LABS: ALBUMIN 3.8 G/DL (3.2-5.2); ALKALINE PHOSPHATASE 54 U/L (46-116); ALT/SGPT 29 U/L (7.0-40); AST/SGOT 14 U/L (<34); BILIRUBIN,TOTAL 0.6 MG/DL (0.3-1.2); BLOOD UREA NITROGEN 13 MG/DL (9-23); CALCIUM LEVEL 9.5 MG/DL (8.5-10.1); CARBON DIOXIDE LEVEL 28 MMOL/L (20-31); CHLORIDE LEVEL 105 MMOL/L (98-107); CREATININE FOR GFR 0.67 MG/DL (0.55-1.30); GLOMERULAR FILTRATION RATE > 60.0 (>51); GLUCOSE, FASTING 81 MG/DL (60-100); SODIUM LEVEL 138 MMOL/L (136-145)
== END ==
LOC: M PLALAB 13:11
PROVIDERS: ATTEND Family Medicine
DX: I10 Essential (primary) hypertension (principal); R73.01 Impaired fasting glucose

== ENCOUNTER 2023-10-28 07:04 | Day surgery (SDC) | payer OTHER ==
[~2023-10-28] VITALS: Ht 152.4 cm; Wt 82.1 kg
[~2023-10-28 07:04] MED LIST changes: +NS 1,000 ML IV ONE
[2023-10-28] MEDS ORDERED: propofoL 200 MG/20 ML VIAL As Ordered ONE (07:12)
[2023-10-28] MEDS ORDERED: LOVE0.6I2 SC (07:33)
[2023-10-28 09:15] VITALS: TEMP 98.5
[2023-10-28 09:30] VITALS: BP 118/64; O2SAT 97
== END 2023-10-28 09:31 | disposition home or self-care (01) ==
LOC: M OPP 07:04
PROVIDERS: ATTEND Internal Medicine Gastroenterology
DX: Z12.11 Encounter for screening for malignant neoplasm of colon (principal); K64.8 Other hemorrhoids; K57.30 Diverticulosis of large intestine without perforation or abscess without bleeding; G47.30 Sleep apnea, unspecified; Z99.89 Dependence on other enabling machines and devices; Z86.711 Personal history of pulmonary embolism; Z86.73 Personal history of transient ischemic attack (TIA), and cerebral infarction without residual deficits; Z79.01 Long term (current) use of anticoagulants; Z79.02 Long term (current) use of antithrombotics/antiplatelets; Z79.899 Other long term (current) drug therapy

== ENCOUNTER → 2023-10-31 | Outpatient (CLI) | payer OTHER ==
[~2023-10-31] MED LIST changes: +LOVE0.6I2 SC; -NS 1,000 ML IV ONE
[2023-10-31 11:01] LABS: INR 1.18; PROTHROMBIN TIME 14.7 SECONDS (12.5-14.5)
== END ==
LOC: M PLALAB 07:01
PROVIDERS: ATTEND Family Medicine
DX: Z51.81 Encounter for therapeutic drug level monitoring (principal)

== ENCOUNTER → 2023-11-22 | Outpatient (CLI) | payer OTHER ==
[2023-11-22 17:10] LABS: INR 2.87
== END ==
LOC: M PLALAB 15:10
PROVIDERS: ATTEND Family Medicine
DX: Z51.81 Encounter for therapeutic drug level monitoring (principal)

== ENCOUNTER → 2023-12-20 | Outpatient (CLI) | payer OTHER ==
[2023-12-20 15:25] LABS: INR 2.22; PROTHROMBIN TIME 23.9 SECONDS (12.5-14.5)
== END ==
LOC: M PLALAB 13:09
PROVIDERS: ATTEND Family Medicine
DX: Z51.81 Encounter for therapeutic drug level monitoring (principal); Z79.01 Long term (current) use of anticoagulants

== ENCOUNTER → 2024-01-20 | Outpatient (CLI) | payer OTHER ==
[2024-01-20 17:14] LABS: INR 2.17; PROTHROMBIN TIME 23.4 SECONDS (12.5-14.5)
== END ==
LOC: M PLALAB 15:34
PROVIDERS: ATTEND Family Medicine
DX: Z51.81 Encounter for therapeutic drug level monitoring (principal); Z79.01 Long term (current) use of anticoagulants

== ENCOUNTER → 2024-02-17 | Outpatient (CLI) | payer OTHER ==
[2024-02-17 17:17] LABS: INR 3.07; PROTHROMBIN TIME 30.6 SECONDS (12.5-14.5)
== END ==
LOC: M PLALAB 15:41
PROVIDERS: ATTEND Family Medicine
DX: D68.51 Activated protein C resistance (principal)

== ENCOUNTER → 2024-02-21 | Outpatient (REF) | payer OTHER ==
[2024-02-21 13:55] LABS: APPEARANCE, URINE CLEAR (CLEAR); BACTERIA, URINE AUTO NEGATIVE (NEGATIVE); BILIRUBIN, URINE AUTO NEGATIVE (NEGATIVE); BLOOD, URINE BLOOD 2+ (NEGATIVE); COLOR, URINE STRAW (YELLOW); GLUCOSE, URINE (UA) AUTO NEGATIVE (NEGATIVE); KETONE, URINE AUTO NEGATIVE (NEGATIVE); LEUKOCYTE ESTERASE, URINE AUTO NEGATIVE (NEGATIVE); NITRITE, URINE AUTO NEGATIVE (NEGATIVE); PROTEIN, URINE AUTO NEGATIVE (NEGATIVE); RBC, URINE AUTO 1 /HPF (0-3); SPECIFIC GRAVITY URINE AUTO 1.002 (1.002-1.035); SQUAMOUS EPITHELIAL CELL UR AU 1 /HPF (0-6); UROBILINOGEN, URINE AUTO 0.2 mg/dL (0.0-2.0); WBC, URINE AUTO 0 /HPF (0-3)
== END ==
LOC: M SFHCADAM 12:38
DX: R10.9 Unspecified abdominal pain (principal)

== ENCOUNTER → 2024-02-21 | Outpatient (REF) | payer OTHER | LOC: M SFHCADAM 17:15 | DX: R19.7 Diarrhea, unspecified (principal) ==

== ENCOUNTER → 2024-03-02 | Outpatient (CLI) | payer OTHER ==
[2024-03-02 17:20] LABS: INR 3.32; PROTHROMBIN TIME 33.5 SECONDS (12.5-14.5)
== END ==
LOC: M PLALAB 16:09
PROVIDERS: ATTEND Family Medicine
DX: D68.51 Activated protein C resistance (principal)

== ENCOUNTER → 2024-03-03 | Outpatient (CLI) | payer OTHER | LOC: M WHC 09:57 | DX: N83.201 Unspecified ovarian cyst, right side (principal); Z53.9 Procedure and treatment not carried out, unspecified reason ==

== ENCOUNTER → 2024-03-16 | Outpatient (CLI) | payer OTHER ==
[~2024-03-16] MED LIST changes: -ROSU5TAB40 PO; +ROSU5TAB49 PO
[2024-03-16 17:50] LABS: INR 2.22; PROTHROMBIN TIME 24.7 SECONDS (12.5-14.5)
== END ==
LOC: M PLALAB 15:34
PROVIDERS: ATTEND Family Medicine
DX: D68.51 Activated protein C resistance (principal)

== ENCOUNTER → 2024-03-31 | Outpatient (CLI) | payer OTHER | LOC: M RAD 11:05 | DX: N83.201 Unspecified ovarian cyst, right side (principal) ==

== ENCOUNTER → 2024-04-15 | Outpatient (CLI) | payer OTHER ==
[2024-04-15 09:45] LABS: BASO # 0.1 10^3/uL (0.0-0.2); BASO % 1.5 % (0.0-1.0); EOS # 0.4 10^3/uL (0.0-0.5); EOS % 6.5 % (0.0-3.0); HEMATOCRIT 47.7 % (36.0-47.0); HEMOGLOBIN 15.5 g/dl (12.0-15.5); LYMPH # 1.8 10^3/uL (1.5-5.0); LYMPH % 27.1 % (24.0-44.0); MEAN CORPUSCULAR HGB CONC 32.5 g/dl (32.0-36.5); MEAN CORPUSCULAR VOLUME 95.4 fl (80.0-96.0); MONO # 0.4 10^3/uL (0.0-0.8); MONO % 6.2 % (2.0-8.0); NEUTROPHILS # 3.9 10^3/uL (1.5-8.5); NEUTROPHILS % 58.5 % (36.0-66.0); PLATELET COUNT, AUTOMATED 247 10^3/uL (150-450); WHITE BLOOD COUNT 6.6 10^3/uL (4.0-10.0)
[2024-04-15 09:52] LABS: ALBUMIN 3.7 G/DL (3.2-5.2); ALKALINE PHOSPHATASE 51 U/L (35-104); ALT/SGPT 27 U/L (7.0-40); AST/SGOT 11 U/L (<34); BILIRUBIN,TOTAL 0.6 MG/DL (0.3-1.2); BLOOD UREA NITROGEN 13 MG/DL (9-23); CALCIUM LEVEL 8.7 MG/DL (8.5-10.1); CARBON DIOXIDE LEVEL 25 MMOL/L (20-31); CHLORIDE LEVEL 108 MMOL/L (98-107); CHOLESTEROL LEVEL 158 MG/DL (<200); CHOLESTEROL RISK RATIO 3.77 (<5); CREATININE FOR GFR 0.79 MG/DL (0.55-1.30); GLOMERULAR FILTRATION RATE > 60.0 (>51); GLUCOSE, FASTING 116 MG/DL (60-100); HDL CHOLESTEROL 41.8 MG/DL (>40); NON-HDL-C 116.2 MG/DL; POTASSIUM SERUM 4.6 MMOL/L (3.5-5.1); SODIUM LEVEL 142 MMOL/L (136-145); TOTAL PROTEIN 7.1 G/DL (5.7-8.2); TRIGLYCERIDES LEVEL 96 MG/DL (<150)
[2024-04-15 09:54] LABS: FERRITIN 55.7 NG/ML (7.3-270.7)
[2024-04-15 09:55] LABS: FREE T4 1.02 NG/DL (0.89-1.76)
[2024-04-15 10:00] LABS: HEMOGLOBIN A1c 5.3 % (4.0-6.0); INR 2.4; PROTHROMBIN TIME 26.2 SECONDS (12.5-14.5)
== END ==
LOC: M PLALAB 07:15
PROVIDERS: ATTEND Family Medicine
DX: D68.51 Activated protein C resistance (principal); E78.5 Hyperlipidemia, unspecified; D50.9 Iron deficiency anemia, unspecified; I10 Essential (primary) hypertension; R73.01 Impaired fasting glucose

== ENCOUNTER → 2024-05-15 | Outpatient (CLI) | payer OTHER ==
[2024-05-15 17:41] LABS: INR 2.48; PROTHROMBIN TIME 26.9 SECONDS (12.5-14.5)
== END ==
LOC: M PLALAB 14:49
PROVIDERS: ATTEND Family Medicine
DX: Z86.711 Personal history of pulmonary embolism (principal); D68.59 Other primary thrombophilia

== ENCOUNTER → 2024-06-19 | Outpatient (CLI) | payer OTHER ==
[2024-06-19 12:53] LABS: INR 2.29; PROTHROMBIN TIME 25.2 SECONDS (12.5-14.5)
== END ==
LOC: M PLALAB 10:11
PROVIDERS: ATTEND Family Medicine
DX: D68.51 Activated protein C resistance (principal); Z86.711 Personal history of pulmonary embolism

== ENCOUNTER → 2024-07-17 | Outpatient (CLI) | payer OTHER ==
[2024-07-17 15:10] LABS: INR 1.96; PROTHROMBIN TIME 22.5 SECONDS (12.5-14.5)
== END ==
LOC: M PLALAB 13:32
PROVIDERS: ATTEND Family Medicine
DX: D68.51 Activated protein C resistance (principal)

== ENCOUNTER → 2024-07-28 | Outpatient (CLI) | payer OTHER ==
[~2024-07-28] MED LIST changes: +ISOVUE-370 76% 100ML VIAL ONE
== END ==
LOC: M PLAIMG 08:33
PROVIDERS: ATTEND Specialist
DX: R10.2 Pelvic and perineal pain (principal); K76.89 Other specified diseases of liver; Z90.710 Acquired absence of both cervix and uterus
CPT/HCPCS: 74178; Q9967

== ENCOUNTER → 2024-08-24 | Outpatient (CLI) | payer OTHER ==
[~2024-08-24] MED LIST changes: -ISOVUE-370 76% 100ML VIAL ONE
[2024-08-24 16:55] LABS: INR 1.88; PROTHROMBIN TIME 21.8 SECONDS (12.5-14.5)
== END ==
LOC: M PLALAB 15:08
PROVIDERS: ATTEND Family Medicine
DX: Z86.711 Personal history of pulmonary embolism (principal)

== ENCOUNTER → 2024-09-24 | Outpatient (CLI) | payer OTHER ==
[2024-09-24 17:09] LABS: INR 1.82; PROTHROMBIN TIME 21.2 SECONDS (12.5-14.5)
== END ==
LOC: M PLALAB 15:34
PROVIDERS: ATTEND Family Medicine
DX: D68.51 Activated protein C resistance (principal)

== ENCOUNTER → 2024-11-19 | Outpatient (REF) | payer OTHER ==
[2024-11-19 17:18] LABS: INR 1.78
== END ==
LOC: M LABDRAWP 16:36
PROVIDERS: ATTEND Family Medicine
DX: D68.51 Activated protein C resistance (principal)

== ENCOUNTER → 2024-12-21 | Outpatient (CLI) | payer OTHER ==
[2024-12-21 15:23] LABS: INR 1.98
== END ==
LOC: M PLALAB 13:34
PROVIDERS: ATTEND Family Medicine
DX: D68.51 Activated protein C resistance (principal)

== ENCOUNTER → 2025-01-29 | Outpatient (CLI) | payer OTHER ==
[2025-01-29 16:11] LABS: INR 2.41
== END ==
LOC: M PLALAB 13:18
PROVIDERS: ATTEND Family Medicine
DX: D68.51 Activated protein C resistance (principal)

== ENCOUNTER → 2025-02-25 | Outpatient (CLI) | payer OTHER ==
[2025-02-25 11:59] LABS: BASO # 0.1 10^3/uL (0.0-0.2); BASO % 1.3 % (0.0-1.0); EOS # 0.2 10^3/uL (0.0-0.5); EOS % 2.8 % (0.0-3.0); LYMPH # 2.0 10^3/uL (1.5-5.0); LYMPH % 28.0 % (24.0-44.0); MONO # 0.5 10^3/uL (0.0-0.8); MONO % 6.5 % (2.0-8.0); NEUTROPHILS # 4.4 10^3/uL (1.5-8.5); NEUTROPHILS % 61.3 % (36.0-66.0); PLATELET COUNT, AUTOMATED 257 10^3/uL (150-450)
[2025-02-25 12:09] LABS: INR 2.05
[2025-02-25 12:15] LABS: ESTIMATED AVERAGE GLUCOSE 111.0 MG/DL (60-110)
[2025-02-25 12:29] LABS: FREE T4 1.10 NG/DL (0.89-1.76)
[2025-02-25 12:31] LABS: TOTAL 25(OH) VITAMIN D 78.4 NG/ML (20.0-100.0)
[2025-02-25 12:34] LABS: ALT/SGPT 19 U/L (7.0-40); AST/SGOT 14 U/L (<34); CALCIUM LEVEL 9.3 MG/DL (8.5-10.1); CARBON DIOXIDE LEVEL 27 MMOL/L (20-31); CHLORIDE LEVEL 105 MMOL/L (98-107); CHOLESTEROL LEVEL 174 MG/DL (<200); CHOLESTEROL RISK RATIO 4.10 (<5); CREATININE FOR GFR 0.76 MG/DL (0.55-1.30); GLOMERULAR FILTRATION RATE > 90.0 (>51); LDL CHOLESTEROL 113.6 MG/DL (<100); NON-HDL-C 131.6 MG/DL; POTASSIUM SERUM 4.5 MMOL/L (3.5-5.1); PTH INTACT 57.5 PG/ML (18.5-88.0); SODIUM LEVEL 143 MMOL/L (136-145); TRIGLYCERIDES LEVEL 90 MG/DL (<150)
== END ==
LOC: M LAB 10:57
PROVIDERS: ATTEND Family Medicine
DX: D50.9 Iron deficiency anemia, unspecified (principal); I10 Essential (primary) hypertension; E78.5 Hyperlipidemia, unspecified; D68.51 Activated protein C resistance; E55.9 Vitamin D deficiency, unspecified

== ENCOUNTER → 2025-04-02 | Outpatient (CLI) | payer OTHER ==
[2025-04-02 13:31] LABS: INR 2.26
== END ==
LOC: M LAB 12:42
PROVIDERS: ATTEND Family Medicine
DX: D68.51 Activated protein C resistance (principal)

== ENCOUNTER → 2025-05-04 | Outpatient (REF) | payer OTHER ==
[2025-05-04 10:55] LABS: INR 2.26
== END ==
LOC: M LAB REF 09:58
PROVIDERS: ATTEND Family Medicine
DX: D68.51 Activated protein C resistance (principal)